=== PATIENT | male | born 1960 | race Caucasian/White ===

== ENCOUNTER 2016-12-07 13:53 | Emergency (ER) | payer BC ==
[2016-12-07 14:03] VITALS: BP 122/76
--- NOTE | 2016-12-07 14:37 | ED Physician Documentation ---
PD HPI UPPER EXT INJURY - Stated complaint Stated Complaint: R HAND INJURY - Chief complaint Chief Complaint: Ext Problem - History obtained from History obtained from: Patient - History of Present Illness Location: Other (He was loading lumbar into his car, a piece of lumber fell on his pinky finger, the right one and crush it against the edge of the pickup bed. He has mild to moderate pain at the distal fifth finger, no other injuries.) Review of Systems Constitutional: reports: Reviewed and negative Cardiac: reports: Reviewed and negative Respiratory: reports: Reviewed and negative PD PAST MEDICAL HISTORY - Past Medical History Past Medical History: Yes Cardiovascular: Hypertension, High cholesterol, Other Respiratory: Asthma Neuro: None Endocrine/Autoimmune: None GI: GERD : None HEENT: None Psych: None Musculoskeletal: None Derm: None - Present Medications Home Medications: Ambulatory Orders Medication Instructions Recorded Confirmed Amlodipine/Atorvastatin 1 tab PO DAILY 03/16/15 03/16/15 [Amlodipine-Atorvast 10-20 mg] Cholecalciferol (Vitamin D3) 2,000 mg PO DAILY 03/16/15 03/16/15 [Vitamin D-3] Fish Oil/Borage/Flax/Om3,6,9#1 1 tab PO DAILY 03/16/15 03/16/15 [[place] 3-6-9 Complex Softgel] Flaxseed Oil 1 tab PO DAILY 03/16/15 03/16/15 Gluc/Yang-MSM#2/C/D3/[place]/Born 1 tab PO DAILY 03/16/15 03/16/15 [Fxoyaifudw-Ndzhcaqxjfk-SZR Tab] Hydrochlorothiazide 50 mg PO DAILY 03/16/15 03/16/15 Omeprazole 20 mg PO DAILY 03/16/15 03/16/15 Potassium Citrate [Urocit-K] 03/16/15 03/16/15 Quinapril HCl 60 mg PO DAILY 03/16/15 03/16/15 - Allergies Allergies/Adverse Reactions: Allergies Allergy/AdvReac Type Severity Reaction Status Date / Time oxycodone AdvReac Nausea Verified 03/16/15 13:45 - Social History Does the pt smoke?: No Smoking Status: Never smoker Does the pt drink ETOH?: Yes Does the pt have substance abuse?: No - Immunizations Immunizations are current?: Yes PD ED PE NORMAL - Vitals Vital signs reviewed: Yes - General General: Alert and oriented X 3, No acute distress - Extremities Extremities: Other (Right fifth finger is tender and swollen at the DIP and distal to that with mildly diminished sensation on the radial side but not absent, normal cap refill, normal sensation on the ulnar side. He has good range of motion in flexion and extension.) - Neuro Neuro: Alert and oriented X 3, Normal speech - Psych Psych: Normal mood, Normal affect Results - Vitals Vitals: Vital Signs - 24 hr 12/07/16 14:01 Temperature 36.5 C Heart Rate 70 Respiratory 14 Rate Blood Pressure 122/76 O2 Saturation 100 Oxygen O2 Source Room air - Rads (name of study) R 5th finger Radiology: EMP read contemporaneously (Official read is negative, on close examination I wonder if he does have a very subtle nondisplaced tuft fracture.) Procedures - Splint (location) R 5th finger Splint applied by: Physician Type of splint: Metal foam finger splint Other: Patient tolerated well, No complications, Neurovascular intact Departure - Departure Disposition: 01 Home, Self Care Clinical Impression: Closed fracture of tuft of distal phalanx of finger Condition: Good Record reviewed to determine appropriate education?: Yes Instructions: ED Fx Finger Closed Comments: Tylenol or ibuprofen as needed for pain, wear the splint as needed for comfort. Return if worse. Follow-up with your doctor if persistent symptoms are present after a few weeks. Discharge Date/Time: 12/07/16 14:42
--- NOTE | 2016-12-07 14:43 | XRAY Preliminary Report ---
Exam: XR Finger(s) RT IMPRESSION: Normal digit radiography. [facility] SITE ID: [id number]
--- NOTE | 2016-12-07 14:46 | XRAY Report ---
EXAM: RIGHT FIFTH DIGIT RADIOGRAPHY EXAM DATE: 12/07/2016 02:24 PM. CLINICAL HISTORY: Right hand 5th digit injury. COMPARISON: None. TECHNIQUE: 3 views. FINDINGS: Bones: Normal. No fracture or bone lesion. Joints: Normal. No subluxations. Soft Tissues: Normal. No soft tissue swelling. IMPRESSION: Normal digit radiography. [facility] Referring Provider Line: [phone] SITE ID: [id number]
== END 2016-12-07 14:42 | disposition home or self-care (01) ==
LOC: ED 13:53
DX: S62.636A Displaced fracture of distal phalanx of right little finger, initial encounter for closed fracture (principal); W22.8XXA Striking against or struck by other objects, initial encounter; Y93.89 Activity, other specified; I10 Essential (primary) hypertension; E78.00 Pure hypercholesterolemia, unspecified
CPT/HCPCS: 29130; 73140; 99283

== ENCOUNTER 2021-05-30 14:53 | Emergency (ER) | payer BC, OTHER ==
[2021-05-30 15:05] VITALS: BP 138/77
[2021-05-30] MEDS ORDERED: lidocaine 1% 20 ML MDV SUBQ ONE (15:17)
--- NOTE | 2021-05-30 15:18 | ED Physician Documentation ---
PD HPI UPPER EXT INJURY - Stated complaint Stated Complaint: RT HAND INJ - Chief complaint Chief Complaint: Laceration - History obtained from History obtained from: Patient (Right-handed gentleman up-to-date on tetanus cut his right thumb while working with a table saw at home just prior to arrival.) Review of Systems Constitutional: reports: Reviewed and negative Eyes: reports: Reviewed and negative Ears: reports: Reviewed and negative PD PAST MEDICAL HISTORY - Past Medical History Cardiovascular: Hypertension, High cholesterol, Other Respiratory: Asthma Endocrine/Autoimmune: None GI: GERD : None HEENT: None Psych: None Musculoskeletal: None Derm: None - Present Medications Home Medications: Ambulatory Orders Medication Instructions Recorded Confirmed Amlodipine/Atorvastatin 1 tab PO DAILY 03/16/15 03/16/15 [Amlodipine-Atorvast 10-20 mg] Cholecalciferol (Vitamin D3) 2,000 mg PO DAILY 03/16/15 03/16/15 [Vitamin D-3] Fish Oil/Borage/Flax/Om3,6,9 1 1 tab PO DAILY 03/16/15 03/16/15 [[place] 3-6-9 Complex Softgel] Flaxseed Oil 1 tab PO DAILY 03/16/15 03/16/15 Glucosam/Chond-MSM 2/C/D3/[place] 1 tab PO DAILY 03/16/15 03/16/15 [Tffjgpxzrk-Bmiqwskcgop-KKW Tab] Omeprazole 20 mg PO DAILY 03/16/15 03/16/15 Potassium Citrate [Urocit-K] 03/16/15 03/16/15 Quinapril HCl 60 mg PO DAILY 03/16/15 03/16/15 hydroCHLOROthiazide 50 mg PO DAILY 03/16/15 03/16/15 [Hydrochlorothiazide] cephALEXin [Keflex] 500 mg PO Q6H #20 cap 05/30/21 - Allergies Allergies/Adverse Reactions: Allergies Allergy/AdvReac Type Severity Reaction Status Date / Time oxycodone AdvReac Nausea Verified 05/30/21 15:05 - Social History Does the pt smoke?: No Smoking Status: Never smoker Does the pt drink ETOH?: Yes Does the pt have substance abuse?: No - Immunizations Immunizations are current?: Yes PD ED PE NORMAL - Vitals Vital signs reviewed: Yes - General General: Alert and oriented X 3, No acute distress - Extremities Extremities: Other (Curved laceration on the ulnar side of the tip of the right thumb with a little bit of nail damage, no distal neurovascular compromise.) - Neuro Neuro: Alert and oriented X 3, Normal speech Results - Vitals Vitals: Vital Signs - 24 hr 05/30/21 05/30/21 05/30/21 15:02 15:54 16:12 Temperature 36.6 C Heart Rate 62 70 Respiratory 14 14 14 Rate Blood Pressure 138/77 H O2 Saturation 99 98 Oxygen O2 Source Room air - Rads (name of study) Right thumb x-ray shows probably avulsion fracture of the tuft of the phalanx Radiology: EMP read contemporaneously Procedures - Laceration (location) R thumb Length in cm: 1 Wound type: Linear, Into subcut fat, Other (The right thumb was digitally blocked with 2% lidocaine in standard fashion with axial anesthetic then prepped and draped in standard fashion.) Neurovascular status: Sensory intact, Motor intact, Vascular intact Wound preparation: Chlorhexadine, Irrigated copiously NS Skin layer closure: Nylon, Interrupted, Size #-0 - enter number (4-0), Sutures - enter # (3) Other: Patient tolerated well, No complications, Neurovascular intact, Other (The nail was trephinated with electrocautery to relieve subungual hematoma) PD MEDICAL DECISION MAKING - ED course ED course: 60-year-old gentleman with a crush injury of the right thumb. Tetanus was updated. The wound was washed out with us saline and prepped with ChloraPrep after a digital block with excellent anesthesia and the wound was closed with sutures. Also trephinated the nail for a moderate sized subungual hematoma. The wound was dressed and he was placed in a metal foam finger splint and started on Keflex for a possible open fracture. Departure - Departure Disposition: 01 Home, Self Care Clinical Impression: Open fracture of right thumb Qualifiers: Encounter type: initial encounter Phalanx: distal Fracture alignment: nondisplaced Qualified Code(s): S62.524B - Nondisplaced fracture of distal phalanx of right thumb, initial encounter for open fracture Condition: Good Record reviewed to determine appropriate education?: Yes Instructions: ED Fx Finger Open Prescriptions: cephALEXin [Keflex] 500 mg PO Q6H #20 cap Comments: I sent your prescription to [facility] in [place]. You can wash with soap and water and then replace dressing, over that keep the metal foam finger splint for comfort. You can wash it daily or twice a day if you want. Come back for any signs of infection which would include: Redness, swelling, drainage, increased pain, or fevers. You can wash it soap and water. Keep it covered and moist with bacitracin ointment which is available over the counter; avoid neosporin. Follow-up with your physician in about 14 days for suture removal. Discharge Date/Time: 05/30/21 16:12
[2021-05-30] MEDS ORDERED: cephALEXin 250 MG CAPSULE PO STA (15:34)
[2021-05-30] MEDS ORDERED: LIDOCAINE 2% 10 ML MDV SUBQ ONE (15:37)
[2021-05-30] MEDS ORDERED: LIDOCAINE-MPF 2% 5 ML VIAL SUBQ STA (15:41)
[2021-05-30] MEDS ORDERED: LIDOCAINE-MPF 2% 5 ML VIAL ONE (15:46)
--- NOTE | 2021-05-30 15:57 | XRAY Report ---
PROCEDURE: Finger(s) RT INDICATIONS: thumb inj TECHNIQUE: AP hand, 3 views of the right thumb finger(s) acquired. COMPARISON: None FINDINGS: Bones: Chronic appearing oblong ossification projects over the dorsal aspect of the right thumb inte rphalangeal joint. Age-indeterminate ossification projects adjacent to the radial side at the base of the right thumb distal phalanx with apparent mild overlying soft tissue edema. Alignment is anatomic . Joint spaces are maintained. No suspicious bony lesions. Soft tissues: No suspicious soft tissue calcifications. No radiopaque soft tissue foreign body seen . IMPRESSION: Age-indeterminate small ossification projects adjacent to the radial side at the base of the right th umb distal phalanx with apparent mild overlying soft tissue edema. This may represent a small avulsio n fracture fragment. There is focal tenderness in this region. Otherwise, no definite acute fracture seen. No radiopaque soft tissue foreign bodies. Reviewed by: Angelo Sanchez MD on 05/30/2021 3:55 PM PDT Approved by: Angelo Sanchez MD on 05/30/2021 3:55 PM PDT Station ID: [id number]
[2021-05-30] MEDS ORDERED: LIDOCAINE-MPF 2% 5 ML VIAL SUBQ ONE (16:00)
[2021-05-30] MEDS ORDERED: LIDOCAINE-MPF 1% 5 ML VIAL SUBQ ONE (16:00)
== END 2021-05-30 16:12 | disposition home or self-care (01) ==
LOC: ED 14:53
DX: S62.524B Nondisplaced fracture of distal phalanx of right thumb, initial encounter for open fracture (principal); W29.3XXA Contact with powered garden and outdoor hand tools and machinery, initial encounter; Y92.009 Unspecified place in unspecified non-institutional (private) residence as the place of occurrence of the external cause
CPT/HCPCS: 12041; 73140; 99283; A9270

== ENCOUNTER 2022-10-09 16:31 | Emergency (ER) | payer OTHER ==
[2022-10-09] MEDS ORDERED: BUFFERED LIDOCAINE 10 ML SYRINGE SUBQ STA (16:39)
--- NOTE | 2022-10-09 16:41 | ED Physician Documentation ---
PD HPI UPPER EXT INJURY - Stated complaint Stated Complaint: RT ARM LAC - History obtained from History obtained from: Patient (Right-handed gentleman who is up-to-date on tetanus excellently stabbed himself to the anterior right wrist at home just prior to arrival.) PD PAST MEDICAL HISTORY - Past Medical History Cardiovascular: Hypertension, High cholesterol, Other Respiratory: Asthma Endocrine/Autoimmune: None GI: GERD : None HEENT: None Psych: None Musculoskeletal: None Derm: None - Present Medications Home Medications: Ambulatory Orders Medication Instructions Recorded Confirmed Cholecalciferol (Vitamin D3) 2,000 mg PO DAILY 03/16/15 10/09/22 [Vitamin D-3] Fish Oil/Borage/Flax/Om3,6,9 1 1 tab PO DAILY 03/16/15 10/09/22 [[place] 3-6-9 Complex Softgel] Flaxseed Oil 1 tab PO DAILY 03/16/15 10/09/22 Omeprazole 20 mg PO DAILY 03/16/15 10/09/22 Diclofenac Sodium 50 mg PO DAILY 10/09/22 10/09/22 Lisinopril [Zestril] 40 mg PO DAILY 10/09/22 10/09/22 Potassium Chloride 20 meq PO DAILY 10/09/22 10/09/22 amLODIPine [Norvasc] 10 mg PO DAILY 10/09/22 10/09/22 - Allergies Allergies/Adverse Reactions: Allergies Allergy/AdvReac Type Severity Reaction Status Date / Time oxycodone AdvReac Nausea Verified 10/09/22 16:40 - Social History Does the pt smoke?: No Smoking Status: Never smoker Does the pt drink ETOH?: Yes Does the pt have substance abuse?: No - Immunizations Immunizations are current?: Yes PD ED PE NORMAL - Vitals Vital signs reviewed: Yes - General General: Alert and oriented X 3, No acute distress - Extremities Extremities: Other (1 cm laceration over the palmaris longus of the anterior right wrist. Normal ulnar and radial pulses and sensation throughout the hand.) - Neuro Neuro: Alert and oriented X 3, Normal speech Results - Vitals Vitals: Vital Signs - 24 hr 10/09/22 16:38 Temperature 36.7 C Heart Rate 63 Respiratory 18 Rate Blood Pressure 126/80 O2 Saturation 99 Oxygen O2 Source Room air Procedures - Laceration (location) R wrist Length in cm: 1 Wound type: Linear, Into subcut fat Neurovascular status: Sensory intact, Motor intact Tendon involvement: Tendon intact Anesthesia: Lidocaine 1%, With bicarb Wound preparation: Irrigated copiously NS Skin layer closure: Nylon, Interrupted, Size #-0 - enter number (4-0), Sutures - enter # (1) Other: Tetanus UTD Departure - Departure Disposition: 01 Home, Self Care Clinical Impression: Puncture wound Condition: Good Record reviewed to determine appropriate education?: Yes Instructions: ED Laceration All Comments: Come back for any signs of infection which would include: Redness, swelling, drainage, increased pain, or fevers. You can wash it soap and water. Keep it covered and moist with bacitracin ointment which is available over the counter; avoid neosporin. Follow-up with your physician in about 14 days for suture removal.
[2022-10-09 16:46] VITALS: BP 126/80
--- NOTE | 2022-10-09 17:55 | XRAY Report ---
PROCEDURE: Wrist 2 View RT INDICATIONS: wrist puncture wound TECHNIQUE: 2 views of the wrist were acquired. COMPARISON: None. FINDINGS: Bones: No fractures or dislocations. No suspicious bony lesions. Soft tissues: No suspicious soft tissue calcifications or masses. No radiopaque foreign body. IMPRESSION: No acute bony abnormality. No radiopaque foreign body. Reviewed by: Gisella Rendon MD on 10/09/2022 5:54 PM PDT Approved by: Gisella Rendon MD on 10/09/2022 5:54 PM PDT Station ID: [id number]
== END 2022-10-09 17:20 | disposition home or self-care (01) ==
LOC: ED 16:31
DX: S61.511A Laceration without foreign body of right wrist, initial encounter (principal); Y28.9XXA Contact with unspecified sharp object, undetermined intent, initial encounter; Y92.009 Unspecified place in unspecified non-institutional (private) residence as the place of occurrence of the external cause; I10 Essential (primary) hypertension; E78.00 Pure hypercholesterolemia, unspecified; Z79.899 Other long term (current) drug therapy
CPT/HCPCS: 12001; 99283